=== PATIENT | female | born 1940 | race Caucasian/White ===

== ENCOUNTER 2017-10-07 21:02 | Observation (INO) ==
--- NOTE | 2017-10-07 21:33 | Emergency Department Note ---
Disposition Clinical Impression: Weakness Disposition: Admitted As Inpatient Condition: Fair Referrals: Florence Pagan, SOUND RECORDIST [Primary Care Provider] - Forms: ED Satisfaction Letter Time of Disposition: 23:35 Weakness [facility] - General Chief complaint: ED Weakness Stated complaint: LEFT SIDED WEAKNESS Time Seen by Provider: 10/07/17 21:31 Source: patient, family Mode of arrival: ambulatory Limitations: no limitations Nursing Notes Reviewed: Yes Vital Signs Reviewed: Yes - History of Present Illness Pt Subjective Complaint: focal weakness Onset (ago): hour(s) Duration: now resolved Location: LUE, LLE Pain Scale: 9 (abdomen) If pain, quality: aching Improves with: none Worsens with: none Associated symptoms: Denies: chest pain, confusion, dark stools, diaphoresis, dysuria, easy bruising, fever/chills, headaches, loss of appetite, nausea/ vomiting, myalgias, rash, shortness of breath, syncope - Related Data Home Medications Medication Instructions Recorded Confirmed Levothyroxine [Synthroid] 75 mcg PO DAILY 10/07/17 10/07/17 Lisinopril-HCTZ 10-12.5 [Prinzide 1 each PO DAILY 10/07/17 10/07/17 10-12.5] Meloxicam [Mobic] 15 mg PO PRN PRN 10/07/17 10/07/17 Allergies Allergy/AdvReac Type Severity Reaction Status Date / Time acetaminophen [From Percocet] AdvReac Hallucinati Verified 10/07/17 21:12 ng Oxycodone [From Percocet] AdvReac Hallucinati Verified 10/07/17 21:12 ng All systems ED: reviewed and negative except as stated. Review of Systems: As Per HPI Constitutional: Reports: weakness. Denies: fever, chills Eyes: Denies: eye pain, eye discharge ENT ED: Denies: ear pain, throat pain Cardiovascular: Denies: chest pain, palpitations Respiratory: Denies: cough, dyspnea Gastrointestinal: Denies: abdominal pain, nausea, vomiting Genitourinary: Denies: urgency, dysuria, frequency Musculoskeletal: Denies: back pain, neck pain Integumentary: Denies: rash, abrasion, lesions Neurological: Denies: headache, weakness Psychiatric: Denies: anxiety, depression Endocrine: Reports: fatigue. Denies: heat or cold intolerance Hematological/Lymphatic: Denies: easy bleeding, easy bruising Allergic/Immunologic: Denies: facial swelling, urticaria Past Medical History - Past Medical History Attestation: Yes The following information was validated with the patient. Source: patient, old records reviewed, nursing notes reviewed Medical history: Reports: arthritis, GERD, hypertension, thyroid disease, other Psychiatric history: Reports: no psych history - Social History Smoking Status: Never smoker Smokeless Tobacco Status: No Alcohol use: Reports: none Drug use: Reports: none Physical Exam - General Limitations: no limitations General appearance: alert, in no apparent distress, anxious - Head Head exam: atraumatic, normocephalic, normal inspection - Eye Eye exam: Present: normal appearance, PERRL, EOMI - ENT ENT exam: normal exam, normal oropharynx, mucous membranes moist, TM's normal bilaterally, normal external ear exam - Neck Neck exam: Present: normal inspection, full ROM, trachea midline - Chest Chest inspection: Present: normal inspection, symmetric chest wall rise - Respiratory Respiratory exam: Present: normal lung sounds bilaterally - Cardiovascular Cardiovascular exam: Present: regular rate, normal rhythm, normal heart sounds - Abdominal Exam Abdominal exam: Present: soft, Non-Tender, normal bowel sounds. Absent: mass, pulsatile mass - Extremities Exam Extremities exam: Present: normal inspection, full ROM, normal capillary refill. Absent: tenderness, pedal edema, joint swelling, calf tenderness - Expanded Upper Extremity Exam Shoulder exam: Present: normal inspection, full ROM Arm exam: Present: normal inspection, full ROM Elbow exam: Present: normal inspection, full ROM Forearm/Wrist exam: Present: normal inspection, full ROM Hand exam: Present: normal inspection, full ROM Vascular exam: Normal: capillary refill, radial pulse - Expanded Lower Extremity Exam Hip/Pelvis exam: Present: normal inspection, full ROM Upper leg exam: Present: normal inspection, full ROM Knee exam: Present: normal inspection, full ROM Lower leg exam: Present: normal inspection, full ROM Ankle exam: Present: normal inspection, full ROM Foot/toe exam: Present: normal inspection, full ROM Neurovascular/Tendon exam: Present: normal capillary refill, normal fine/light touch. Absent: motor deficit, sensory deficit, tendon deficit Gait: observed and normal - Back Exam Back exam: Present: normal inspection, full ROM. Absent: muscle spasm - Neurological Exam Neurological exam: Present: alert, oriented X3, CN II-XII intact, normal gait - Psychiatric Psychiatric exam: Present: normal affect, normal mood - Skin Skin exam: Present: warm, dry, intact, normal color Course Course Narrative: Seen and examined CT performed for laboratory results admitted for observation service Dr. Horton for serial exams Vital Signs Temperature 98.8 F 10/07/17 21:14 Pulse Rate 70 10/07/17 21:14 Respiratory Rate 20 10/07/17 21:14 Blood Pressure 152/61 10/07/17 21:14 O2 Sat by Pulse Oximetry 95 10/07/17 21:14 Temperature 97.8 F 10/07/17 22:00 Pulse Rate 82 10/07/17 23:15 Respiratory Rate 20 10/07/17 23:15 Blood Pressure 128/69 10/07/17 23:15 O2 Sat by Pulse Oximetry 97 10/07/17 23:15 Oxygen Delivery Oxygen Delivery Room Air Weakness - Differential Diagnosis Differential Diagnosis: Likely: stroke - Medical Records Medical records reviewed: Yes I reviewed the patient's medical records. - Lab Data Lab results reviewed: Yes I reviewed the patient's lab results. Result diagrams: 10/07/17 22:00 10/07/17 22:00 Lab Results 10/07/17 10/07/17 10/07/17 Range/Units 22:00 22:00 22:00 WBC 10.7 (4.3-11.1) K/mcL RBC 4.33 (3.82-4.97) M/mcL Hgb 14.0 (11.5-15.4) g/dL Hct 40.9 (35.3-44.9) % MCV 94.5 (83.0-100.0) fL MCH 32.3 (28.0-33.3) pg MCHC 34.2 (31.6-35.5) g/dL RDW 12.0 (11.5-14.5) % Plt Count 228 (140-400) K/mcL MPV 9.6 (9.4-12.4) fL Immature Gran % 0.3 (0-4) % Seg Neutrophils % 51.8 % Lymphocytes % 36.9 % Monocytes % 7.4 % Eosinophils % 3.2 % Basophils % 0.4 % Neutrophils # 5.6 (1.6-8.9) K/mcL Lymphocytes # 4.0 (0.6-4.6) K/mcL Monocytes # 0.8 (0.0-1.3) K/mcL Eosinophils # 0.3 (0.0-0.6) K/mcL Basophils # 0.0 (0.0-0.2) K/mcL PT 11.4 (9.4-12.1) Seconds INR 1.0 APTT 33.4 (26.0-36.0) Seconds Sodium 139 (136-145) mEq/L Potassium 3.3 L (3.5-5.1) mEq/L Chloride 100 (98-107) mEq/L Carbon Dioxide 29 (23-29) mEq/L BUN 23 (8-23) mg/dL Creatinine 1.10 (0.60-1.20) mg/dL Est GFR ( Amer) 58 L (> 60) Est GFR (Non-Af Amer) 48 L (> 60) BUN/Creatinine Ratio 21 (6-26) Glucose 101 (70-105) mg/dL Calculated Osmolality 292 (280-300) Calcium 10.1 (8.6-10.3) mg/dL Troponin I (< 0.04) ng/mL TSH (0.340-5.600) mcIU/mL Urine Color (Yellow) Urine Clarity (Clear) Urine pH (5.0-8.0) pH Units Ur Specific [place] (1.010-1.025) Urine Protein (Neg-Trace) mg/dL Urine Glucose (UA) (Normal) mg/dL Urine Ketones (Negative) mg/dL Urine Blood (Negative) Urine Nitrite (Negative) Urine Bilirubin (Negative) Urine Urobilinogen (Normal) mg/dL Ur Leukocyte Esterase (Negative) 10/07/17 10/07/17 Range/Units 22:00 22:00 WBC (4.3-11.1) K/mcL RBC (3.82-4.97) M/mcL Hgb (11.5-15.4) g/dL Hct (35.3-44.9) % MCV (83.0-100.0) fL MCH (28.0-33.3) pg MCHC (31.6-35.5) g/dL RDW (11.5-14.5) % Plt Count (140-400) K/mcL MPV (9.4-12.4) fL Immature Gran % (0-4) % Seg Neutrophils % % Lymphocytes % % Monocytes % % Eosinophils % % Basophils % % Neutrophils # (1.6-8.9) K/mcL Lymphocytes # (0.6-4.6) K/mcL Monocytes # (0.0-1.3) K/mcL Eosinophils # (0.0-0.6) K/mcL Basophils # (0.0-0.2) K/mcL PT (9.4-12.1) Seconds INR APTT (26.0-36.0) Seconds Sodium (136-145) mEq/L Potassium (3.5-5.1) mEq/L Chloride (98-107) mEq/L Carbon Dioxide (23-29) mEq/L BUN (8-23) mg/dL Creatinine (0.60-1.20) mg/dL Est GFR ( Amer) (> 60) Est GFR (Non-Af Amer) (> 60) BUN/Creatinine Ratio (6-26) Glucose (70-105) mg/dL Calculated Osmolality (280-300) Calcium (8.6-10.3) mg/dL Troponin I < 0.03 (< 0.04) ng/mL TSH 2.272 (0.340-5.600) mcIU/mL Urine Color Light Yellow (Yellow) Urine Clarity Clear (Clear) Urine pH 6.0 (5.0-8.0) pH Units Ur Specific [place] <= 1.005 L (1.010-1.025) Urine Protein Negative (Neg-Trace) mg/dL Urine Glucose (UA) Normal (Normal) mg/dL Urine Ketones Negative (Negative) mg/dL Urine Blood Negative (Negative) Urine Nitrite Negative (Negative) Urine Bilirubin Negative (Negative) Urine Urobilinogen Normal (Normal) mg/dL Ur Leukocyte Esterase Negative (Negative) - Radiology Data Radiology results reviewed: Yes I reviewed the patient's radiology results. ITS Impressions Chest X-Ray 10/07/17 21:32 IMPRESSION: Left basilar atelectasis versus focal scarring. Otherwise no acute findings. Low lung volumes. D/ / Daniel Torres MD / Daniel Torres MD Interpreting Provider: Daniel Torres MD Head CT 10/07/17 21:32 IMPRESSION: No acute intracranial abnormality. Findings were discussed with Estela Roper at 9:56 pm on 10/07/2017. D/ / Dimitry Cui MD / Dimitry Cui MD Interpreting Provider: Dimitry Cui MD - EKG Data EKG attestation: Yes I reviewed and interpreted this EKG. EKG results narrative: Sinus rhythm nonspecific T-wave changes rate 72. 174 QRS 109 QT 375 axis -19 Critical Care Time Critical Care Time: No
[2017-10-07 22:07] LABS: Basophils % 0.4 %; Eosinophils # 0.3 K/mcL (0.0-0.6); Eosinophils % 3.2 %; Hematocrit 40.9 % (35.3-44.9); Immature Granulocytes % 0.3 % (0-4); Lymphocytes % 36.9 %; Mean Corpuscular HGB Conc 34.2 g/dL (31.6-35.5); Mean Corpuscular Hemoglobin 32.3 pg (28.0-33.3); Mean Corpuscular Volume 94.5 fL (83.0-100.0); Mean Platelet Volume 9.6 fL (9.4-12.4); Monocytes # 0.8 K/mcL (0.0-1.3); Monocytes % 7.4 %; Neutrophils # 5.6 K/mcL (1.6-8.9); Platelet Count 228 K/mcL (140-400); Red Blood Count 4.33 M/mcL (3.82-4.97); Segmented Neutrophils % 51.8 %
[2017-10-07 22:15] LABS: Prothrombin Time 11.4 Seconds (9.4-12.1)
[2017-10-07 22:18] LABS: Activated Partial Thrombo Time 33.4 Seconds (26.0-36.0)
[2017-10-07 22:22] LABS: Calcium 10.1 mg/dL (8.6-10.3); Potassium 3.3 mEq/L (3.5-5.1)
[2017-10-07 22:26] LABS: Troponin I < 0.03 ng/mL (< 0.04)
[2017-10-07 22:39] LABS: Thyroid Stimulating Hormone 2.272 mcIU/mL (0.340-5.600)
[2017-10-07 22:46] LABS: Bilirubin,Urine Negative (Negative); Blood,Urine Negative (Negative); Clarity,Urine Clear (Clear); Glucose,Urine (UA) Normal (Normal); Ketones,Urine Negative (Negative); Leukocyte Esterase,Urine Negative (Negative); Nitrite,Urine Negative (Negative); Protein,Urine Negative (Neg-Trace); Specific Gravity,Urine <= 1.005 (1.010-1.025); Urobilinogen,Urine Normal (Normal)
[2017-10-07 22:47] LABS: Color,Urine Light Yellow (Yellow)
[2017-10-08] MEDS ORDERED: Naloxone 0.4 MG/ML INJ IVP PRN (00:26)
[2017-10-08 05:14] LABS: Basophils % 0.4 %; Eosinophils # 0.3 K/mcL (0.0-0.6); Eosinophils % 2.6 %; Hematocrit 39.2 % (35.3-44.9); Hemoglobin 13.5 g/dL (11.5-15.4); Immature Granulocytes % 0.2 % (0-4); Lymphocytes # 3.4 K/mcL (0.6-4.6); Lymphocytes % 35.4 %; Mean Corpuscular HGB Conc 34.4 g/dL (31.6-35.5); Mean Corpuscular Hemoglobin 32.1 pg (28.0-33.3); Mean Corpuscular Volume 93.3 fL (83.0-100.0); Mean Platelet Volume 10.3 fL (9.4-12.4); Monocytes # 0.8 K/mcL (0.0-1.3); Monocytes % 8.5 %; Platelet Count 224 K/mcL (140-400); Segmented Neutrophils % 52.9 %
[2017-10-08 05:26] LABS: Prothrombin Time 11.5 Seconds (9.4-12.1)
[2017-10-08 05:28] LABS: Activated Partial Thrombo Time 32.3 Seconds (26.0-36.0)
[2017-10-08 05:47] LABS: BUN/Creatinine Ratio 21 (6-26); Blood Urea Nitrogen 21 mg/dL (8-23); Carbon Dioxide 26 mEq/L (23-29); Chloride 103 mEq/L (98-107); Glucose 106 mg/dL (70-105); Osmolality,Calculated 293 (280-300); Potassium 3.4 mEq/L (3.5-5.1); Sodium 140 mEq/L (136-145); eGFR For Non-African Americans 52 (> 60)
--- NOTE | 2017-10-08 15:13 | Internal Med History&Physical ---
Date of Encounter: 10/08/17 Time of Encounter: 14:30 Assessment and Plan (1) Acute focal neurological deficit Current visit: Yes Status: Resolved Likely vertebrobasilar TIA, now resolved. Head CT in the ER unremarkable for acute findings. Carotid ultrasound will be ordered and she will be started on aspirin. (2) Hypertension Current visit: Yes Status: Chronic Hold lisinopril/HCTZ due to azotemia. Qualifiers: Hypertension type: essential hypertension Qualified Code(s): I10 - Essential (primary) hypertension (3) CKD (chronic kidney disease) stage 3, GFR 30-59 ml/min Current visit: Yes Status: Chronic Hold lisinopril/HCTZ and meloxicam. Monitor renal indices. (4) Hypokalemia Current visit: Yes Status: Acute Likely due to HCTZ use. Will give supplemental potassium and monitor labs. (5) DJD (degenerative joint disease) Current visit: Yes Status: Chronic Hold meloxicam due to azotemia and use Ultram for pain control. Qualifiers: Osteoarthritis location: unspecified site Osteoarthritis type: unspecified Qualified Code(s): M19.90 - Unspecified osteoarthritis, unspecified site Internal Medicine - H&P: HPI Chief complaint: Neurologic deficit Admitted From: Emergency Dept Plans for Post Hospital Care: Home History of present illness: Ms. Moses is a 77 year old female who came to emergency room stating approximately 8 PM while at leisure she had a sudden onset of sensation of dizziness/lightheaded and "head numbness". She reports tightness in her face and jaw. She noticed she had dysarthria but knew which words she wished to speak. She reports partial vision loss in her left eye and decreased ability to focus in her right eye. When she did not improve after a few minutes her granddaughter (a nurse) sees was called and came to evaluate her. She was brought to emergency room and evaluated and admitted to [facility] floor for ongoing care needs. She states she feels back to her baseline now. She denies previous similar episodes. She denies past strokes seizures or syncopal episodes. She has occasional sensation of rapid heartbeat but has never had evaluation done. Cardiovascular history is significant for hypertension but denies AK heart failure angina DVT pulmonary embolus or documented cardiac arrhythmias. Past Med Surg Social Fam HX - Past Medical History Medical history: arthritis, GERD, hypertension, thyroid disease, other Additional medical history: CATARACTS Psychiatric history: no psych history - Past Surgical History Additional surgical history: CATARACT SURG , CARPAL TUNNEL BOTH WRISTS, - Social History Smoking Status: Never smoker Smokeless Tobacco Status: No Alcohol use: none Drug use: none Internal Medicine - H&P: Meds Levothyroxine [Synthroid] 75 mcg PO DAILY 10/07/17 [History] Lisinopril-HCTZ 10-12.5 [Prinzide 10-12.5] 1 each PO DAILY 10/07/17 [History] Meloxicam [Mobic] 15 mg PO PRN PRN 10/07/17 [History] 3 Allergy/AdvReac Type Severity Reaction Status Date / Time acetaminophen [From Percocet] AdvReac Hallucinati Verified 10/07/17 21:12 ng Oxycodone [From Percocet] AdvReac Hallucinati Verified 10/07/17 21:12 ng All Systems PM: A 10-system review of systems was performed and is negative for pertinent findings except as documented above in the HPI. Review of systems: Gen.: She states her weight is stable the past few months Cardiovascular: As per history of present illness Respiratory: She is a lifelong nonsmoker and has no known chronic lung disease. GI: She has had cholecystectomy. She denies disorders of her liver or exocrine pancreas : She was unaware she had abnormal GFR since November 2014. She has urinary incontinence and has a "dropped bladder". Neurologic: As per history of present illness Endocrine: She denies diabetes or hyperlipidemia. She had radioactive iodine treatment 2016 for a thyroid abnormality but does not know details. Hematology/oncology: She denies blood disorders cancers or anemia Psychiatric: She has anxiety denies depression or other mental health issues [place] skeletal: She has DJD and chronic right hip pain. She had bilateral carpal tunnel surgery and left knee meniscus surgery. She has occasional edema. - Constitutional Vitals: Temp Pulse Resp BP Pulse Ox 98.4 F 72 17 129/77 93 10/08/17 12:07 10/08/17 12:07 10/08/17 12:07 10/08/17 12:07 10/08/17 12:07 Exam: Gen.: She is a well developed overweight female resting comfortably in bed who appears in no acute distress at present time HEENT: Head is atraumatic and normocephalic. Eyes: EOMI. There is no scleral icterus. Mouth: Mucosa is moist. Neck: Supple and nontender. There is no thyromegaly or adenopathy noted. No carotid bruits are auscultated Heart: Regular without murmurs gallops or ectopics Lungs: No wheezes or crackles are heard. Abdomen: Soft and nontender. No masses or guarding are noted. Extremities: There is no cyanosis edema or clubbing noted. Dorsalis pedis and posttibial pulses are trace palpable bilaterally. She has significant DJD changes of her hands. Neurologic: Mental status: She is talkative and a good historian. Cranial nerves: Smile is symmetric. Forehead wrinkles bilaterally. Tongue protrudes midline. EOMI. There is no dysarthria. Motor: There is no pronator drift. She is able to lift both legs off the bed. Ankle flexion and extension strength against resistance is symmetric. Rapid finger movements are intact symmetrically. Cerebellar: Finger to nose is intact bilaterally. Skin: Warm and dry. Internal Med - H&P Results - Labs CBC & Chem 7: 10/08/17 04:30 10/08/17 04:30 Labs: Short CBC 10/08/17 Range/Units 04:30 WBC 9.5 (4.3-11.1) K/mcL Hgb 13.5 (11.5-15.4) g/dL Hct 39.2 (35.3-44.9) % Plt Count 224 (140-400) K/mcL Neutrophils # 5.0 (1.6-8.9) K/mcL BMP 10/08/17 04:30 Sodium 140 Potassium 3.4 L Chloride 103 Carbon Dioxide 26 BUN 21 Creatinine 1.02 Glucose 106 H Calcium 10.0 Cardiac Enzymes 10/08/17 10/08/17 Range/Units 04:00 08:55 Troponin I < 0.03 < 0.03 (< 0.04) ng/mL
[2017-10-08] MEDS ORDERED: traMADol 50 MG TABLET PO PRN (15:24)
[2017-10-08] MEDS: Aspirin 81 MG TAB.CHEW PO SCH (15:32)
[2017-10-09 07:04] LABS: Alanine Aminotransferase 9 Units/L (7-52); Albumin 3.9 g/dL (3.5-5.7); Alkaline Phosphatase 45 Units/L (34-104); Aspartate Amino Transferase 14 Units/L (13-39); BUN/Creatinine Ratio 22 (6-26); Bilirubin,Total 0.8 mg/dL (0.3-1.0); Blood Urea Nitrogen 22 mg/dL (8-23); Calcium 9.6 mg/dL (8.6-10.3); Carbon Dioxide 28 mEq/L (23-29); Chloride 103 mEq/L (98-107); Glucose 103 mg/dL (70-105); Osmolality,Calculated 290 (280-300); Potassium 3.9 mEq/L (3.5-5.1); Sodium 138 mEq/L (136-145); Total Protein 5.9 g/dL (6.4-8.9); eGFR For Non-African Americans 53 (> 60)
[2017-10-09] MEDS: Aspirin 81 MG TAB.CHEW PO SCH (08:24)
[2017-10-09] MEDS: Ondansetron ODT 4 MG TAB.RAPDIS SL PRN ×2 (09:36→12:51)
--- NOTE | 2017-10-09 10:30 | Internal Med Progress Note ---
Date of Encounter: 10/09/17 Time of Encounter: 10:20 - Assessment and plan (1) Acute focal neurological deficit Current Visit: Yes Status: Resolved Assessment and plan: October 09. Remains resolved. Carotid ultrasound to be done in a.m. Continue aspirin. (2) Hypertension Current Visit: Yes Status: Chronic Assessment and plan: October 09. Blood pressure stable off lisinopril/HCTZ. Qualifiers: Hypertension type: essential hypertension Qualified Code(s): I10 - Essential (primary) hypertension (3) CKD (chronic kidney disease) stage 3, GFR 30-59 ml/min Current Visit: Yes Status: Chronic Assessment and plan: October 09. Creatinine minimally changed at 1.01. Remain off meloxicam and lisinopril/HCTZ. Recheck labs in a.m. (4) Hypokalemia Current Visit: Yes Status: Acute Assessment and plan: October 09. Potassium normal at 3.9. Discontinue potassium supplementation and remain off lisinopril/HCTZ. (5) DJD (degenerative joint disease) Current Visit: Yes Status: Chronic Assessment and plan: October 09. Remain off meloxicam. Ultram has possibly caused nausea/vomiting. She denies acetaminophen allergy so this will be prescribed prn. Qualifiers: Osteoarthritis location: unspecified site Osteoarthritis type: unspecified Qualified Code(s): M19.90 - Unspecified osteoarthritis, unspecified site - Subjective Interval history: October 09. She states she does not feel well and has had vomiting episodes this morning after taking medication for headache. - Constitutional Vitals: Temp Pulse Resp BP Pulse Ox 97.5 F L 64 18 120/68 93 10/09/17 06:59 10/09/17 06:59 10/09/17 06:59 10/09/17 06:59 10/09/17 06:59 Exam: She is resting comfortably in bed at present time and appears in no acute distress. Her affect is bright and cheerful. I reviewed her medications and lab results. Internal Medicine: Result - Labs CBC & Chem 7: 10/08/17 04:30 10/09/17 06:00 Labs: BMP 10/09/17 06:00 Sodium 138 Potassium 3.9 Chloride 103 Carbon Dioxide 28 BUN 22 Creatinine 1.01 Glucose 103 Calcium 9.6 Liver Function 10/09/17 Range/Units 06:00 Total Bilirubin 0.8 (0.3-1.0) mg/dL AST 14 (13-39) Units/L ALT 9 (7-52) Units/L Alkaline Phosphatase 45 (34-104) Units/L Albumin 3.9 (3.5-5.7) g/dL - ABG Interpretation ABG results: PT/INR, D-dimer PT 11.5 Seconds (9.4-12.1) 10/08/17 04:30 Consult Discharge Plan - Plan Referrals: Florence Pagan, APARTMENT LEASING MANAGER [Primary Care Provider] - 1 week
[2017-10-10 06:00] LABS: BUN/Creatinine Ratio 18 (6-26); Blood Urea Nitrogen 17 mg/dL (8-23); Calcium 9.7 mg/dL (8.6-10.3); Carbon Dioxide 29 mEq/L (23-29); Chloride 103 mEq/L (98-107); Glucose 95 mg/dL (70-105); Osmolality,Calculated 287 (280-300); Sodium 138 mEq/L (136-145); eGFR For Non-African Americans 57 (> 60)
[2017-10-10 08:00] VITALS: BP 126/55
--- NOTE | 2017-10-10 09:47 | Discharge Summary ---
Date of Encounter: 10/10/17 Time of Encounter: 09:35 - Discharge Diagnosis (1) TIA (transient ischemic attack) Priority: Primary Status: Resolved (2) Hypertension Priority: Secondary Status: Chronic Qualifiers: Hypertension type: essential hypertension Qualified Code(s): I10 - Essential (primary) hypertension (3) CKD (chronic kidney disease) stage 3, GFR 30-59 ml/min Priority: Secondary Status: Chronic (4) Hypokalemia Priority: Secondary Status: Resolved (5) DJD (degenerative joint disease) Priority: Secondary Status: Chronic Qualifiers: Osteoarthritis location: unspecified site Osteoarthritis type: unspecified Qualified Code(s): M19.90 - Unspecified osteoarthritis, unspecified site Hospital course: Ms. Moses is a 77 year old female who came to emergency room stating approximately 8 PM while at leisure she had a sudden onset of sensation of dizziness/lightheaded and "head numbness". She reports tightness in her face and jaw. She noticed she had dysarthria but knew which words she wished to speak. She reports partial vision loss in her left eye and decreased ability to focus in her right eye. When she did not improve after a few minutes her granddaughter (a nurse) sees was called and came to evaluate her. She was brought to emergency room and evaluated and admitted to [facility] for ongoing care needs. Initial orders were written by the emergency room physician. I saw her on October 08 and performed the history and physical. By the time I saw her she was asymptomatic. I felt she had a TIA and started her on aspirin 81 mg daily. Carotid ultrasound was ordered which showed no significant stenosis. She had no further recurrence of symptoms and will be discharged home on aspirin 81 mg daily. Lisinopril/HCTZ was held because of azotemia. Mobic was also discontinued. BUN and creatinine improved to 17 and 0.95 respectively by day of discharge with estimated GFR 57. Her blood pressure remained well controlled. She will remain off these medications at home. Supplemental potassium was given and hypokalemia resolved. On October 10 she felt improved and stable for discharge home. She will follow with her PCP within 1 week. - Time Spent with Patient Total time spent providing and/or coordinating discharge services: - Discharge Medications Home Medications: Levothyroxine [Synthroid] 75 mcg PO DAILY 10/07/17 [History] Aspirin 81 mg PO DAILY tab.chew 10/10/17 [Rx] Allergies/Adverse Reactions: 3 Allergy/AdvReac Type Severity Reaction Status Date / Time acetaminophen [From Percocet] AdvReac Hallucinati Verified 10/07/17 21:12 ng Oxycodone [From Percocet] AdvReac Hallucinati Verified 10/07/17 21:12 ng Date of admission: 10/07/17 23:41 Primary care physician: Florence Pagan CNP - Constitutional Vitals: Temp Pulse Resp BP Pulse Ox 98.2 F 66 16 126/55 93 10/10/17 07:59 10/10/17 07:59 10/10/17 07:59 10/10/17 07:59 10/10/17 07:59 - Patient Status Disposition: Home, Self-Care Condition: Fair Overall status at discharge: patient is progressing back to baseline - Discharge Instructions Follow Up With: Florence Pagan CNP [Primary Care Provider] - 1 week - Diet and Activity Activity: resume usual activities as tolerated Diet: advance to your usual diet
[2017-10-10] MEDS: Aspirin 81 MG TAB.CHEW PO SCH (09:48)
--- NOTE | 2017-10-10 17:39 | Electrocardiograph Report ---
[address] [place], [place] [address] Test Date: 2017-10-07 Pat Name: Gauri Moses Department: [id number] Room: [facility] Gender: F Living Specialist: [id number] : 1940 Requested By: Estela Roper Order Number: [id number] Reading MD: Clarence Larry Measurements Intervals [place] Rate: 72 P: 47 WV: 174 QRS: -19 QRSD: 109 T: 66 QT: 375 QTc: 399 Interpretive Statements SINUS RHYTHM Electronically Signed On 10-10-2017 17:37:24 EDT by Clarence Larry
== END 2017-10-10 10:40 | disposition home or self-care (01) ==
LOC: EMEROOPIK 21:02 → INPPIK 21:02
PROVIDERS: ADMIT Internal Medicine; ATTEND Internal Medicine